=== PATIENT | female | born 1955 | race Caucasian/White ===

== ENCOUNTER → 2016-05-14 | Outpatient (CLI) | payer OTHER ==
[~2016-05-14] MED LIST: ALPR-411 PO; AMLO10TA2 PO; ASPI81TA28 PO; CHOL1000 PO; CYPR4TAB31 PO; EFFSR75 PO; MAGN250T9 PO; MULT-513 PO; POLY335019 PO; PRZ/40 PO; VENL37.593 PO; VENL75CA73 PO; VITACAP26 PO; ZINC TAB PO
== END | disposition home or self-care (01) ==
LOC: C.LABSPEC 17:28
PROVIDERS: ATTEND Internal Medicine
DX: J02.9 Acute pharyngitis, unspecified (principal)

== ENCOUNTER → 2016-08-17 | Outpatient (CLI) | payer OTHER, BC ==
[~2016-08-17] MED LIST changes: -POLY335019 PO
--- NOTE | 2016-08-17 16:38 | DIAGNOSTIC IMAGING REPORT ---
RIGHT HAND MIN 3 VIEWS ROUTINE CLINICAL HISTORY: Right hand pain status post trauma COMPARISON: None. DISCUSSION: There are no acute fractures. There are mild osteoarthritic changes. There is a tiny lunate cyst. There are several equivocal small bony erosions. IMPRESSION: No acute fractures or dislocations. Electronically signed by: Kurt De Leon M.D. 08/17/2016 4:37 PM Dictated Date/Time: 08/17/2016 4:36 PM
== END | disposition home or self-care (01) ==
LOC: C.RADBC 16:09
PROVIDERS: ATTEND Physician Assistant Medical
DX: S60.051A Contusion of right little finger without damage to nail, initial encounter (principal); X58.XXXA Exposure to other specified factors, initial encounter

== ENCOUNTER → 2016-09-08 | Outpatient (CLI) | payer OTHER, BC ==
--- NOTE | 2016-09-08 14:01 | DIAGNOSTIC IMAGING REPORT ---
C-SPINE ROUTINE 4 OR 5 VIEWS CLINICAL HISTORY: Neck strain. COMPARISON STUDY: No previous studies for comparison. FINDINGS: There is slight reversal of the normal cervical lordosis. No acute fracture or suspicious lesion is present. There is moderate disc space narrowing and osteophytosis at C5-C6 and C6-C7. IMPRESSION: 1. No acute cervical spine fracture or subluxation. 2. Moderate multilevel degenerative disc disease and facet arthrosis most pronounced at C5-C6 and C6-C7. Electronically signed by: Juan Carlos Razo M.D. 09/08/2016 2:00 PM Dictated Date/Time: 09/08/2016 1:59 PM
--- NOTE | 2016-09-08 14:02 | DIAGNOSTIC IMAGING REPORT ---
THORACIC SPINE 3 VIEWS HISTORY: BACK PAIN COMPARISON: None. FINDINGS: There is no fracture. No subluxation. Mild to moderate degenerative disc disease within the thoracic spine. There are small endplate osteophytes. Paraspinal soft tissues are unremarkable. IMPRESSION: No fracture or subluxation within the thoracic spine. Electronically signed by: Bill Arciniega M.D. 09/08/2016 2:01 PM Dictated Date/Time: 09/08/2016 1:59 PM
== END | disposition home or self-care (01) ==
LOC: C.RAD1850 13:37
PROVIDERS: ATTEND Internal Medicine
DX: S16.1XXA Strain of muscle, fascia and tendon at neck level, initial encounter (principal); X58.XXXA Exposure to other specified factors, initial encounter; M54.9 Dorsalgia, unspecified

== ENCOUNTER → 2016-11-03 | Outpatient (CLI) | payer OTHER ==
[2016-11-03 17:22] LABS: HEMATOCRIT 44.3 % (37-47); MEAN CELL VOLUME 88.1 fL (80-100); MEAN CORPUSCULAR HEMOGLOBIN 30.6 pg (25-34); MEAN CORPUSCULAR HGB CONC 34.8 g/dl (32-36); MEAN PLATELET VOLUME 9.7 fL (7.4-10.4); PLATELET COUNT 284 K/uL (130-400); RED BLOOD COUNT 5.03 M/uL (4.2-5.4)
[2016-11-03 17:30] LABS: ALT/SGPT 33 U/L (12-78); BLOOD UREA NITROGEN 12 mg/dl (7-18); BUN/CREATININE RATIO 12.6 (10-20); CALCIUM 9.2 mg/dl (8.5-10.1); CARBON DIOXIDE 28 mmol/L (21-32); CHLORIDE 102 mmol/L (98-107); CREATININE 0.92 mg/dl (0.60-1.20); GLUCOSE 98 mg/dl (70-99); POTASSIUM 3.4 mmol/L (3.5-5.1); SODIUM 136 mmol/L (136-145)
[2016-11-03 17:41] LABS: ALKALINE PHOSPHATASE 87 U/L (45-117); AST/SGOT 22 U/L (15-37)
--- NOTE | 2016-11-10 07:50 | CODING QUERY MEDICAL NECESSITY ---
SUPPORTING DIAGNOSIS NEEDED Haritha TORRES, A supporting diagnosis is required for the test/procedure performed on this patient in order for us to be reimbursed by the patient's insurance. Please provide a supporting diagnosis for the following test/procedure listed below next to the test name along with your signature. *If there is no additional diagnosis for this patient that would support the following test/procedure please document that below next to the test/procedure. Test(s)/Procedure(s) that require a supporting diagnosis: * ([id number]) VITAMIN D ASSAY DIAGNOSIS: DATE OF SERVICE: 11/03/16 Provider Signature: Date: Thank you Sly Saucedo [facility] Information Management Once completed, please kindly fax back to [phone] For questions please call [phone]
== END | disposition home or self-care (01) ==
LOC: C.LABBFT 10:33
PROVIDERS: ATTEND Physician Assistant Medical
DX: I10 Essential (primary) hypertension (principal); E55.9 Vitamin D deficiency, unspecified

== ENCOUNTER 2017-01-04 01:26 | Emergency (ER) | payer OTHER ==
[~2017-01-04] VITALS: Ht 157.5 cm; Wt 65.2 kg
[~2017-01-04 01:26] MED LIST changes: -PRZ/40 PO; -VENL37.593 PO; -VENL75CA73 PO
[2017-01-04 01:35] VITALS: TEMP 36.7; Ht 157.5 cm; Wt 65.2 kg
[2017-01-04] MEDS ORDERED: OFLOXACIN 0.3% OP SOLN 5 ML BTL OTR STA (01:57)
--- NOTE | 2017-01-04 02:11 | EMERGENCY ROOM VISIT NOTE ---
History First contact with patient: 01:43 Chief Complaint: EAR PAIN Stated Complaint: RIGHT EAR PUNCTURE History of Present Illness The patient is a 61 year old female who presents to the Emergency Room with complaints of a "right ear puncture." The patient states that this morning, she was cleaning her ear with a Q-tip when she was restrained by a spider and jammed Q-tip into her ear. She has had some bleeding from the ear since then. She saw Dr. Garces earlier today and was told that there was too much blood to see anything. She states that she has still had some bleeding. She has a concussion which occurred one year ago and states that this is "flaring up" her concussion. She rates her discomfort a 5/10. She denies any difficulty hearing. Review of Systems A complete 10 point review of systems was reviewed with the patient with pertinent positives and negatives as per history of present illness. All else were negative. Past Medical/Surgical History Medical Problems: (1) Appendectomy (2) Benign hypertension (3) Cholecystectomy (4) Depression (5) HCV (6) Hepatitis C carrier (7) Hysterectomy (8) Mitral valve prolapse Family History FH: stroke Social History Smoking Status: Current Every Day Smoker Alcohol Use: none Marital Status: Housing Status: lives with family Current/Historical Medications Scheduled Amlodipine Besylate (Norvasc), 10 MG PO DAILY Aspirin (Aspirin Ec), 81 MG PO DAILY Cholecalciferol (Vitamin D3), 2 TAB PO DAILY Fluoxetine Hcl (Prozac), 40 MG PO DAILY Magnesium (Magnesium), 250 MG PO Q2D Multivitamins/Minerals (Mvi With Minerals), 1 TAB PO DAILY Venlafaxine Hcl (Venlafaxine Extended Rel), 37.5 MG PO DAILY Venlafaxine Hcl (Venlafaxine Extended Rel), 75 MG PO DAILY Vitamins C & E (Vitamin C), 1 CAP PO DAILY Scheduled PRN Alprazolam (Xanax), 0.5 MG PO TID PRN for Anxiety Physical Exam Vital Signs Date Time Temp Pulse Resp B/P (MAP) Pulse Ox O2 Delivery O2 Flow Rate FiO2 01/04/17 02:35 65 19 132/72 99 01/04/17 01:35 36.7 70 20 132/80 100 Physical Exam VITALS: Vitals are noted on the nurse's note and reviewed by myself. Vital signs stable. GENERAL: This is a 61-year-old female, in no acute distress, nondiaphoretic, well-developed well-nourished. EARS: There is an abrasion the right ear canal with some dried blood. The tympanic membrane appears to be intact. EYES: Pupils equal round and reactive to light and accommodation. HEART: Regular rate and rhythm without murmurs gallops or rubs. LUNGS: Clear to auscultation bilaterally without wheezes, rales or rhonchi. NEURO: Patient was alert and oriented to person place and time. Medical Decision & Procedures Medications Administered Medications (Trade) Dose Ordered Sig/Abelino Route Start Time Stop Time Status Last Admin Dose Admin Ofloxacin (Ocuflox 0.3% Oph Soln) 2 drops NOW STAT OTR 01/04/17 01:57 01/04/17 02:01 DC 01/04/17 02:39 2 DROPS Medical Decision Patient was evaluated as above. There is no evidence of a perforated tympanic membrane. Patient has an abrasion of the external auditory canal. She will be placed on antibiotic drops to prevent infection. She was given information for ENT referral if she has any persistent symptoms secondary to this. The patient was agreeable to this. She verbalized understanding of my assessment and treatment plan was discharged home in good condition. Medication Reconcilliation Current Medication List: was personally reviewed by me Blood Pressure Screening Patient's blood pressure: Normal blood pressure Impression Primary Impression: Abrasion of ear canal Departure Information Dispostion Home / Self-Care Condition GOOD Referrals Manjit Garces M.D. (PCP) Alan Santiago M.D. Patient Instructions My [facility] Additional Instructions Ofloxacin drops: 2 drops in the right ear twice a day for 1 week. Follow up with ENT (Dr. Santiago) if you have any symptoms in 1 week. Follow-up with your primary care provider. Problem Qualifiers Primary Impression: Abrasion of ear canal Encounter type: initial encounter Laterality: right Qualified Codes: S00.411A - Abrasion of right ear, initial encounter
[2017-01-04 02:35] VITALS: BP 132/72; PULSE 65; O2SAT 99
[2017-01-04] MEDS ORDERED: VENL75CA73 PO (03:09)
[2017-01-04] MEDS ORDERED: PRZ/40 PO (03:09)
[2017-01-04] MEDS ORDERED: VENL37.593 PO (03:09)
--- NOTE | 2017-01-04 07:09 | EMERGENCY ROOM VISIT NOTE ---
ED Visit Note First contact with patient: 01:43 I have personally seen and evaluated the patient with the PA. I agree with the diagnosis and management decisions and have been personally involved in the case. Please see Kandi Jalloh PA-C's notes for further details of the history, physical and visit.
== END 2017-01-04 02:35 | disposition home or self-care (01) ==
LOC: C.EDB 01:28
DX: S00.411A Abrasion of right ear, initial encounter (principal); X58.XXXA Exposure to other specified factors, initial encounter; Y93.E8 Activity, other personal hygiene; I10 Essential (primary) hypertension; Z90.49 Acquired absence of other specified parts of digestive tract; F32.9 Major depressive disorder, single episode, unspecified; Z90.710 Acquired absence of both cervix and uterus; I34.1 Nonrheumatic mitral (valve) prolapse; F17.210 Nicotine dependence, cigarettes, uncomplicated; Z79.82 Long term (current) use of aspirin; Z79.899 Other long term (current) drug therapy

== ENCOUNTER → 2017-01-10 | Outpatient (CLI) | payer OTHER ==
[~2017-01-10] MED LIST changes: -CYPR4TAB31 PO; -EFFSR75 PO; +PRZ/40 PO; +VENL37.593 PO; +VENL75CA73 PO; -ZINC TAB PO
--- NOTE | 2017-01-10 15:04 | DIAGNOSTIC IMAGING REPORT ---
CT LUNG SCREENING, LOW DOSE WITH COMPUTER-AIDED DETECTION (CAD) CLINICAL HISTORY: 61 years-old Female presenting with lung cancer screening, current smoker. CT DOSE (mGy.cm): The estimated cumulative dose is 77.10 mGycm. TECHNIQUE: Low-dose helical CT was acquired without intravenous contrast from lung apices to bases and reconstructed at 2.5 mm every 2 mm. Computer-Aided detection (CAD) was utilized for this study. A dose lowering technique was used consistent with the principles of ALARA (as low as reasonably achievable). COMPARISON: No previous studies for comparison. FINDINGS: Accounts Payable Associate topogram: Unremarkable. On soft tissue windows, normal thyroid and thoracic inlet. Numerous subcentimeter axillary and mediastinal lymph nodes, possibly reactive. Evaluation of the rajendra limited without intravenous contrast. Atherosclerosis of aortic arch. Normal heart size. Coronary artery calcification. No pericardial or pleural effusion. Upper abdomen normal. On lung windows, no focal infiltrate or nodule. Airways patent. On bone windows, degenerative changes of the thoracic spine noted. CAD FINDINGS: Overall Lung RADS Category: 1 Lung RADS Management Recommendation: Lung-RADS 1: Continue annual screening in 12 months. Lung RADS Follow Up Date: 2018-01-10 Lung RADS Nodule ID: IMPRESSION: 1. No pulmonary nodule. No acute intrathoracic pathology. Annual screening recommended in 12 months. Electronically signed by: Munir Martin M.D. 01/10/2017 3:03 PM Dictated Date/Time: 01/10/2017 2:57 PM
== END | disposition home or self-care (01) ==
LOC: C.CTS 14:28
PROVIDERS: ATTEND Internal Medicine
DX: F17.200 Nicotine dependence, unspecified, uncomplicated (principal)

== ENCOUNTER 2017-03-02 15:53 | Emergency (ER) | payer OTHER ==
[~2017-03-02] VITALS: Ht 172.7 cm; Wt 65.1 kg
[2017-03-02 16:02] VITALS: Ht 172.7 cm; Wt 65.1 kg
[2017-03-02 16:40] LABS: BASO % 0.6 %; BASO ABS # 0.05 K/uL (0-0.2); COMPLETE YES; EOS % 0.9 %; HEMATOCRIT 41.2 % (37-47); IG% 0.2 %; LYMPH % 34.9 %; LYMPH ABS # 2.82 K/uL (1.2-3.4); MEAN CELL VOLUME 88.6 fL (80-100); MEAN PLATELET VOLUME 9.7 fL (7.4-10.4); MONO % 6.7 %; NEUT % 56.7 %; PLATELET COUNT 251 K/uL (130-400); RED BLOOD COUNT 4.65 M/uL (4.2-5.4); WHITE BLOOD COUNT 8.09 K/uL (4.8-10.8)
[2017-03-02 17:04] LABS: BUN/CREATININE RATIO 14.2 (10-20); CALCIUM 9.1 mg/dl (8.5-10.1); CREATININE 0.82 mg/dl (0.60-1.20); POTASSIUM 3.6 mmol/L (3.5-5.1)
--- NOTE | 2017-03-02 17:04 | DIAGNOSTIC IMAGING REPORT ---
CT SCAN OF THE BRAIN WITHOUT IV CONTRAST CLINICAL HISTORY: Headache. Change in mental status. COMPARISON STUDY: MRI of the brain dated 04/23/2016. TECHNIQUE: Unenhanced axial CT scan of the brain is performed from the vertex to the skull base. CT DOSE: 1118.21 mGycm FINDINGS: Brain parenchyma: There are age-related involutional changes noting mild subcortical and periventricular microangiopathic change. There is no hemorrhage, mass effect, or evidence of acute territorial ischemia by CT criteria. Weiss-white matter is preserved. No extra-axial fluid collection is seen. Ventricles, sulci, cisterns: Prominent secondary to involutional change. Intracranial vasculature: There is atherosclerotic calcification of the cavernous carotid and vertebral arteries. Calvarium: Unremarkable. Sinuses and mastoids: The visualized paranasal sinuses are clear. The mastoid air cells are well pneumatized. Orbits: The bony orbits are grossly intact. IMPRESSION: There is no hemorrhage, mass effect, or evidence of acute territorial ischemia by CT criteria. Electronically signed by: Lakhwinder Hurtado M.D. 03/02/2017 5:02 PM Dictated Date/Time: 03/02/2017 4:57 PM
[2017-03-02 17:23] VITALS: BP 128/71; PULSE 70; O2SAT 98
--- NOTE | 2017-03-02 19:28 | EMERGENCY ROOM VISIT NOTE ---
History Report prepared by Guicho: Roshan Myers Under the Supervision of: Dr. Hilario Woodall M.D. First contact with patient: 15:58 Chief Complaint: HYPOTENSION Stated Complaint: WEAKNESS, HYPOTENSION History of Present Illness The patient is a 61 year old female who presents to the Emergency Room with complaints of hypotension that occurred today. While at [facility] for medication management, she suddenly felt very sleepy and lightheaded. She also began to have a headache. She does have a history of chronic headaches and this feels similar. They took her blood pressure which was 112 systolically. It then dropped to 109. She is still taking Effexor, but they are slowly lowering her dosages until she is off of it completely. She denies any fevers, chest pain, shortness of breath, vomiting, or diarrhea. She has chronic neck and back secondary to a previous injury. She is also taking Xanax 0.5 mg PO and Amlodipine. She notes that she was previous taken off of Lisinopril because her blood pressure dropped to 109 systolically. Recently, she has not been eating as much as she used to over the past several days. Source of History: patient Onset: today Position: other (Global) Symptom Intensity: 109 systolic Quality: other (Hypotension) Timing: resolved Associated Symptoms: + headache, No fevers, No chest pain, No SOB, No vomiting, No diarrhea Note: She is lightheaded and sleepy. Review of Systems See HPI for pertinent positives & negatives. A total of 10 systems reviewed and were otherwise negative. Past Medical & Surgical Medical Problems: (1) Appendectomy (2) Benign hypertension (3) Cholecystectomy (4) Depression (5) HCV (6) Hepatitis C carrier (7) Hysterectomy (8) Mitral valve prolapse Family History FH: stroke Social History Smoking Status: Former Smoker Smokeless Tobacco Use: No Alcohol Use: none Drug Use: none Marital Status: Housing Status: lives with family Current/Historical Medications Scheduled Amlodipine Besylate (Norvasc), 10 MG PO DAILY Aspirin (Aspirin Ec), 81 MG PO DAILY Cholecalciferol (Vitamin D3), 2 TAB PO DAILY Fluoxetine Hcl (Prozac), 40 MG PO DAILY Magnesium (Magnesium), 250 MG PO QAM Multivitamins/Minerals (Mvi With Minerals), 1 TAB PO DAILY Venlafaxine Hcl (Venlafaxine Extended Rel), 37.5 MG PO DAILY Vitamins C & E (Vitamin C), 1 CAP PO DAILY Scheduled PRN Alprazolam (Xanax), 0.5 MG PO TID PRN for Anxiety Allergies Coded Allergies: Amoxicillin (Verified Allergy, Intermediate, N/V, 03/02/17) Clavulanic Acid (Verified Allergy, Intermediate, N/V, 03/02/17) Erythromycin (Verified Allergy, Unknown, UNSURE, 03/02/17) Latex1 -Allergic Contact Dermititis (Verified Allergy, Unknown, SKIN IRRITATION, 03/02/17) Sulfa Antibiotics (Verified Allergy, Unknown, "TEARS UP MY STOMACH", 03/02) Tetracyclines (Verified Allergy, Unknown, GI SYMPTOMS, 03/02/17) Buspirone (Verified Adverse Reaction, Mild, "FUNNY IN THE HEAD", 03/02/17) Physical Exam Vital Signs Date Time Temp Pulse Resp B/P (MAP) Pulse Ox O2 Delivery O2 Flow Rate FiO2 03/02/17 17:23 70 128/71 98 Room Air 03/02/17 16:26 69 03/02/17 16:18 65 112/61 69 109/65 73 105/60 03/02/17 16:02 75 17 131/70 99 Room Air Physical Exam Constitutional: Vital signs reviewed. Eyes: Pupils are equal round reactive to light. Conjunctiva are noninjected. ENT: Pharynx is clear without erythema or exudate. Mucous membranes are moist. Neck supple without meningeal signs. Respiratory: Clear to auscultation bilaterally. Breath sounds are equal bilaterally. Cardiovascular: Regular rate and rhythm. No rubs or gallops. GI: Soft, nondistended and nontender. Bowel sounds are present. Musculoskeletal: No peripheral edema. No lower extremity tenderness. Integumentary: No cyanosis. Neurological: The patient is slightly drowsy appearing but answers questions easily. She is oriented x4. Cranial nerves II-XII are intact. Motor is 5 out of 5 all extremities. Sensation is intact to light touch all extremities. Normal speech. No pronator drift. Psychiatric: Normal affect. Medical Decision & Procedures ER Provider Diagnostic Interpretation: Radiology results as stated below per my review and the radiologist's interpretation: CT SCAN OF THE BRAIN WITHOUT IV CONTRAST CLINICAL HISTORY: Headache. Change in mental status. COMPARISON STUDY: MRI of the brain dated 04/23/2016. TECHNIQUE: Unenhanced axial CT scan of the brain is performed from the vertex to the skull base. CT DOSE: 1118.21 mGycm FINDINGS: Brain parenchyma: There are age-related involutional changes noting mild subcortical and periventricular microangiopathic change. There is no hemorrhage, mass effect, or evidence of acute territorial ischemia by CT criteria. Weiss-white matter is preserved. No extra-axial fluid collection is seen. Ventricles, sulci, cisterns: Prominent secondary to involutional change. Intracranial vasculature: There is atherosclerotic calcification of the cavernous carotid and vertebral arteries. Calvarium: Unremarkable. Sinuses and mastoids: The visualized paranasal sinuses are clear. The mastoid air cells are well pneumatized. Orbits: The bony orbits are grossly intact. IMPRESSION: There is no hemorrhage, mass effect, or evidence of acute territorial ischemia by CT criteria. Electronically signed by: Lakhwinder Hurtado M.D. 03/02/2017 5:02 PM Dictated Date/Time: 03/02/2017 4:57 PM Laboratory Results 03/02/17 16:25 Red Blood Count 4.65, Mean Corpuscular Volume 88.6, Mean Corpuscular Hemoglobin 31.0, Mean Corpuscular Hemoglobin Concent 35.0, Mean Platelet Volume 9.7, Neutrophils (%) (Auto) 56.7, Lymphocytes (%) (Auto) 34.9, Monocytes (%) (Auto) 6.7, Eosinophils (%) (Auto) 0.9, Basophils (%) (Auto) 0.6, Neutrophils # (Auto) 4.59, Lymphocytes # (Auto) 2.82, Monocytes # (Auto) 0.54, Eosinophils # (Auto) 0.07, Basophils # (Auto) 0.05 03/02/17 16:25 Test 03/02/17 16:25 White Blood Count 8.09 K/uL (4.8-10.8) Red Blood Count 4.65 M/uL (4.2-5.4) Hemoglobin 14.4 g/dL (12.0-16.0) Hematocrit 41.2 % (37-47) Mean Corpuscular Volume 88.6 fL (80-100) Mean Corpuscular Hemoglobin 31.0 pg (25-34) Mean Corpuscular Hemoglobin Concent 35.0 g/dl (32-36) Platelet Count 251 K/uL (130-400) Mean Platelet Volume 9.7 fL (7.4-10.4) Neutrophils (%) (Auto) 56.7 % Lymphocytes (%) (Auto) 34.9 % Monocytes (%) (Auto) 6.7 % Eosinophils (%) (Auto) 0.9 % Basophils (%) (Auto) 0.6 % Neutrophils # (Auto) 4.59 K/uL (1.4-6.5) Lymphocytes # (Auto) 2.82 K/uL (1.2-3.4) Monocytes # (Auto) 0.54 K/uL (0.11-0.59) Eosinophils # (Auto) 0.07 K/uL (0-0.5) Basophils # (Auto) 0.05 K/uL (0-0.2) RDW Standard Deviation 41.0 fL (36.4-46.3) RDW Coefficient of Variation 12.8 % (11.5-14.5) Immature Granulocyte % (Auto) 0.2 % Immature Granulocyte # (Auto) 0.02 K/uL (0.00-0.02) Anion Gap 7.0 mmol/L (3-11) Est Creatinine Clear Calc Drug Dose 74.5 ml/min Estimated GFR () 90.8 Estimated GFR (Non- 78.3 BUN/Creatinine Ratio 14.2 (10-20) Calcium Level 9.1 mg/dl (8.5-10.1) Laboratory results as reviewed by me. ECG Indication: weakness Rate (beats per minute): 66 Rhythm: normal sinus Findings: no acute ischemic change, no ectopy ED Course 1558: The patient was evaluated in room C9. A complete history and physical exam was performed. 1734: Upon reevaluation, the patient appeared to have improvement of her symptoms. She is ambulating around the room while getting dressed. She does not appear to be drowsy and is now awake and alert. I discussed tonight's findings with her. She verbalized agreement of the treatment plan. She was discharged home. Medical Decision This is a 61-year-old female who presents with generalized weakness and low blood pressures. Differential diagnosis includes metabolic derangement, dehydration, orthostatic hypotension, medication reaction, toxidrome. I did perform a limited focused review of portions of the patient's old chart on the electronic medical record. The patient has had no recent pertinent visits to this hospital. I did evaluate the patient as noted above. Patient is presenting with slightly low blood pressure and feeling lightheaded. She is neurologically intact at this time. She appears slightly drowsy but is oriented 4. IV access was established. The patient was placed on a continuous playground monitor. I did order and personally review the patient's 12-lead EKG as described above. I did order and review the patient's blood work as noted in the electronic medical record. Labs are unremarkable. I did order a CT of the head. I did review the images myself as well as the radiology report as described above. There is no evidence of bleed or CVA. Orthostatic vital signs were obtained and showed a mild drop in blood pressure upon standing. I did reevaluate the patient. She is now awake and alert and walking without difficulty. She has no complaints at this time. I did discuss the test results with her. I did recommend close follow up with her doctor. She was discharged in good condition. Medication Reconcilliation Current Medication List: was personally reviewed by me Blood Pressure Screening Patient's blood pressure: Elevated blood pressure Blood pressure disposition: Elevated BP felt to be situational Impression Primary Impression: Generalized weakness Additional Impressions: Chronic back pain Chronic neck pain Chronic headache Scribe Attestation The scribe's documentation has been prepared under my direct and personally reviewed by me in its entirety. I confirm that the note above accurately reflects all work, treatment, procedures, and medical decision making performed by me. Departure Information Dispostion Home / Self-Care Referrals Manjit Garces M.D. (PCP) Forms HOME CARE DOCUMENTATION FORM, IMPORTANT VISIT INFORMATION, WORK / SCHOOL INSTRUCTIONS Patient Instructions ED Weakness [facility] – [place], [place], My [facility] Additional Instructions You have been examined and treated today on an emergency basis only. This is not a substitute for, or an effort to provide, complete comprehensive medical care. It is impossible to recognize and treat all injuries or illnesses in a single emergency department visit. It is therefore important that you follow up closely with your physician. Call as soon as possible for an appointment. Return for worsening symptoms or if you develop fever, vomiting, chest pain, shortness of breath or any other concerning symptoms. Problem Qualifiers Additional Impressions: Chronic back pain Back pain location: low back pain Back pain laterality: bilateral Sciatica presence: without sciatica Qualified Codes: M54.5 - Low back pain; G89.29 - Other chronic pain Chronic headache Headache type: unspecified Intractability: not intractable Qualified Codes : R51 - Headache
== END 2017-03-02 17:52 | disposition home or self-care (01) ==
LOC: EDBD 15:53 → C.EDC 15:54
DX: R53.1 Weakness (principal); M54.5 Low back pain; M54.2 Cervicalgia; R51 Headache; G89.29 Other chronic pain; I10 Essential (primary) hypertension; Z90.49 Acquired absence of other specified parts of digestive tract; F32.9 Major depressive disorder, single episode, unspecified; Z90.710 Acquired absence of both cervix and uterus; I34.1 Nonrheumatic mitral (valve) prolapse; Z82.3 Family history of stroke; Z87.891 Personal history of nicotine dependence; Z79.82 Long term (current) use of aspirin; Z79.899 Other long term (current) drug therapy

== ENCOUNTER → 2017-04-29 | Outpatient (CLI) | payer OTHER ==
[~2017-04-29] MED LIST changes: -VENL75CA73 PO
[2017-04-29 16:56] LABS: ALBUMIN 4.3 gm/dl (3.4-5.0); TOTAL PROTEIN 8.4 gm/dl (6.4-8.2)
[2017-05-02 12:14] LABS: HERPES SIMPLEX AB IGG-1 32.7 INDEX (< 0.90); HERPES SIMPLEX AB IGG-2 5.84 INDEX (< 0.90)
== END | disposition home or self-care (01) ==
LOC: C.LABBFT 11:50
PROVIDERS: ATTEND Physician Assistant Medical
DX: R39.9 Unspecified symptoms and signs involving the genitourinary system (principal); E78.5 Hyperlipidemia, unspecified